=== PATIENT | female | born 1985 | race Caucasian/White ===

== ENCOUNTER 2018-03-24 14:05 | Emergency (ER) | payer OTHER ==
[~2018-03-24] VITALS: Ht 160 cm; Wt 57.6 kg
[~2018-03-24 14:05] MED LIST: AMOX1TAB12 PO; INTESTINEX1 CAP PO; PROTONIX40 MG PO
== END 2018-03-24 17:02 | disposition home or self-care (01) ==
LOC: ER 14:05
DX: G43.909 Migraine, unspecified, not intractable, without status migrainosus (principal)

== ENCOUNTER 2018-06-20 17:50 | Emergency (ER) | payer OTHER ==
[~2018-06-20] VITALS: Ht 160 cm; Wt 57.6 kg
== END 2018-06-20 21:57 | disposition home or self-care (01) ==
LOC: ER 17:50
DX: N30.80 Other cystitis without hematuria (principal); M54.5 Low back pain

== ENCOUNTER 2018-09-19 00:34 | Emergency (ER) | payer OTHER ==
[~2018-09-19] VITALS: Ht 157.5 cm; Wt 59.0 kg
[2018-09-19] MEDS ORDERED: DICY20TA PO (02:14)
== END 2018-09-19 02:48 | disposition home or self-care (01) ==
LOC: ER 00:34
DX: R07.89 Other chest pain (principal); K29.70 Gastritis, unspecified, without bleeding

== ENCOUNTER 2019-11-02 01:39 | Emergency (ER) | payer OTHER ==
[~2019-11-02] VITALS: Ht 160 cm; Wt 59.0 kg
[~2019-11-02 01:39] MED LIST changes: +DICY20TA PO
[2019-11-02] MEDS ORDERED: ULTRAM50 MG PO ×2 (02:37→02:38)
== END 2019-11-02 02:53 | disposition home or self-care (01) ==
LOC: ER 01:39
DX: H60.8X1 Other otitis externa, right ear (principal)

== ENCOUNTER 2021-11-06 08:56 | Emergency (ER) | payer OTHER ==
[~2021-11-06] VITALS: Ht 160 cm; Wt 56.7 kg
[~2021-11-06 08:56] MED LIST changes: +ULTRAM50 MG PO
== END 2021-11-06 13:20 | disposition home or self-care (01) ==
LOC: ER 08:56
DX: N39.0 Urinary tract infection, site not specified (principal); Z20.828 Contact with and (suspected) exposure to other viral communicable diseases